=== PATIENT | female | born 1965 | race Two or more races ===

== ENCOUNTER 2016-08-10 17:47 | Emergency (ER) | payer OTHER, BC ==
[~2016-08-10] VITALS: Ht 165.1 cm; Wt 155.0 kg
[2016-08-10] MEDS ORDERED: ALPRAZOLAM0.5 MG PO (17:58)
[2016-08-10] MEDS ORDERED: SERTRALINE HCL50 MG PO (17:58)
[2016-08-10] MEDS ORDERED: ASPIRIN325 MG PO (17:59)
[2016-08-10 18:14] LABS: HEMATOCRIT 42.3 % (36.0-46.0); MCH 29.6 PG (29.0-34.0); MCHC 33.3 G/DL (30.0-36.0); MCV 88.7 FL (83-99); MEAN PLAT.VOLUME 10.6 uM^3 (9.5-12.4); PLATELET COUNT 225 K/uL (156-360); RBC DIS.WIDTH-CV 12.5 % (11.8-14.6); RBC DIS.WIDTH-SD 41.4 % (39-53); RED BLOOD COUNT 4.77 M/uL (3.80-5.20)
[2016-08-10 18:24] LABS: CHLORIDE 108 mEq/L (99-109); POTASSIUM 3.6 mEq/L (3.7-5.4); SODIUM 141 mEq/L (136-147)
[2016-08-10 18:27] LABS: GLUCOSE 100 mg/dL (70-99)
[2016-08-10 18:28] LABS: ANION GAP 9 MEQ/L (2-14); TOTAL BILIRUBIN 0.4 mg/dL (0.0-1.0)
[2016-08-10 18:29] LABS: SERUM ETHYL ALCOHOL < 10 mg/dL
[2016-08-10 18:30] LABS: ALKALINE PHOSPHATASE 53 IU/L (3-129); GFR ESTIMATE (CALCULATED) > 59 mL/min/
[2016-08-10 18:31] LABS: UREA NITROGEN (BUN) 16 mg/dL (9-23)
[2016-08-10 18:34] LABS: LIPASE 24 U/L (1.0-51.0)
[2016-08-10 18:39] LABS: QUANTITATIVE HCG < 4.0 MIU/ML
[2016-08-10 19:23] VITALS: BP 129/83
== END 2016-08-10 19:24 | disposition home or self-care (01) ==
LOC: EME 17:47
PROVIDERS: Emergency Medicine
DX: S20.221A Contusion of right back wall of thorax, initial encounter (principal); Z88.0 Allergy status to penicillin; V49.40XA Driver injured in collision with unspecified motor vehicles in traffic accident, initial encounter; Y92.410 Unspecified street and highway as the place of occurrence of the external cause
CPT/HCPCS: 71020; 72070; 80053; 83690; 84702; 85027; 99281; 99284; G0480